=== PATIENT | male | born 1975 | race Caucasian/White ===

== ENCOUNTER 2018-01-03 19:26 | Emergency (ER) | payer SELFPAY ==
[~2018-01-03] VITALS: Ht 175.3 cm; Wt 110.9 kg
[2018-01-03 19:38] VITALS: TEMP 36.9; Ht 175.3 cm; Wt 110.9 kg
[2018-01-03 20:16] LABS: BASO % 0.4 %; BASO ABS # 0.03 K/uL (0-0.2); EOS % 1.9 %; EOS ABS # 0.15 K/uL (0-0.5); HEMATOCRIT 44.5 % (42-52); HEMOGLOBIN 15.1 g/dL (14.0-18.0); IG# 0.04 K/uL (0.00-0.02); LYMPH % 29.7 %; LYMPH ABS # 2.35 K/uL (1.2-3.4); MEAN CELL VOLUME 82.4 fL (80-100); MEAN CORPUSCULAR HGB CONC 33.9 g/dl (32-36); MEAN PLATELET VOLUME 10.5 fL (7.4-10.4); MONO % 5.7 %; MONO ABS # 0.45 K/uL (0.11-0.59); NEUT % 61.8 %; NEUT ABS # 4.88 K/uL (1.4-6.5); PLATELET COUNT 226 K/uL (130-400); RED CELL DISTRIBUTION WIDTH CV 13.6 % (11.5-14.5); RED CELL DISTRIBUTION WIDTH SD 40.6 fL (36.4-46.3)
[2018-01-03 20:42] LABS: CREATININE 1.12 mg/dl (0.60-1.40)
[2018-01-03 20:55] LABS: INR 0.9 (0.9-1.1); PTT PATIENT 26.6 SECONDS (21.0-31.0)
--- NOTE | 2018-01-03 21:01 | DIAGNOSTIC IMAGING REPORT ---
ULTRASOUND RIGHT LOWER EXTREMITY VENOUS CLINICAL HISTORY: Right leg pain. COMPARISON STUDY: No priors. TECHNIQUE: Real-time, grayscale, and color Doppler sonography of the deep veins of the right lower extremity was performed from the inguinal crease to the calf. Compression and augmentation were utilized. FINDINGS: There is no sonographic evidence of deep venous thrombosis identified in the right lower extremity. The common femoral, superficial femoral, and popliteal veins are patent and normally compressible. The greater saphenous vein and the profunda femoris vein at the junction with the common femoral vein are clear. The visualized calf veins are patent. IMPRESSION: There is no sonographic evidence of deep venous thrombosis identified in the right lower extremity. Electronically signed by: Keanu Benavides M.D. 01/03/2018 9:00 PM Dictated Date/Time: 01/03/2018 8:59 PM
--- NOTE | 2018-01-03 21:25 | EMERGENCY ROOM VISIT NOTE ---
History Report prepared by Greer: Seema Ricks Under the Supervision of: Dr. Nicola Barahona D.O. First contact with patient: 19:43 Chief Complaint: SWELLING TO EXTREMITY Stated Complaint: LEG IS SWOLLEN History of Present Illness The patient is a 42 year old male who presents to the Emergency Room with complaints of worsening right leg swelling starting a few days ago. He first noticed pressure in his leg several days ago. The pressure worsens with bending his leg. Today, the swelling noticeably increased. He has some thigh pain on the back side. He denies any calf pain or knee pain. He denies any trauma. He has not found any insect bites. 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 Source of History: patient Onset: few days ago Position: leg (right) Quality: pressure, other (swelling) Timing: worsening Note: Pt reports thigh pain. Pt denies knee pain, calf pain. Review of Systems See HPI for pertinent positives & negatives. A total of 10 systems reviewed and were otherwise negative. Family History Cancer Heart disease Hypertension Kidney disease Kidney stones Lung disease Social History Smoking Status: Current Some Day Smoker Marital Status: Housing Status: lives with family Occupation Status: employed Current/Historical Medications No Active Prescriptions or Reported Meds Allergies Coded Allergies: No Known Allergies (Unverified , 01/03/18) Physical Exam Vital Signs Date Time Temp Pulse Resp B/P (MAP) Pulse Ox O2 Delivery O2 Flow Rate FiO2 01/03/18 19:38 36.9 93 18 146/76 97 Room Air Physical Exam CONSTITUTIONAL/VITAL SIGNS: Reviewed / noted above. GENERAL: Non-toxic in appearance. INTEGUMENTARY: Warm, dry, and [place]. HEAD: Normocephalic. EYES: without scleral icterus or trauma. ENT/OROPHARYNX: clear and moist. LYMPHADENOPATHY/NECK: Is supple without lymphadenopathy or meningismus. RESPIRATORY: Lungs clear and equal. CARDIOVASCULAR: Regular rate and rhythm. GI/ABDOMEN: Soft and nontender. No organomegaly or pulsatile mass. No rebound or guarding. Normal bowel sounds. EXTREMITIES: Warm and well perfused. Right leg is more tense and swollen compared to left leg, distal pulses are intact. BACK: No CVA tenderness. NEUROLOGICAL: Intact without focal deficits. PSYCHIATRIC: normal affect. MUSCULOSKELETAL: Normally developed with good muscle tone. Medical Decision & Procedures ER Provider Diagnostic Interpretation: Radiology results as stated below per my review and radiologist interpretation: ULTRASOUND RIGHT LOWER EXTREMITY VENOUS CLINICAL HISTORY: Right leg pain. COMPARISON STUDY: No priors. TECHNIQUE: Real-time, grayscale, and color Doppler sonography of the deep veins of the right lower extremity was performed from the inguinal crease to the calf. Compression and augmentation were utilized. FINDINGS: There is no sonographic evidence of deep venous thrombosis identified in the right lower extremity. The common femoral, superficial femoral, and popliteal veins are patent and normally compressible. The greater saphenous vein and the profunda femoris vein at the junction with the common femoral vein are clear. The visualized calf veins are patent. IMPRESSION: There is no sonographic evidence of deep venous thrombosis identified in the right lower extremity. Electronically signed by: Keanu Benavides M.D. 01/03/2018 9:00 PM Dictated Date/Time: 01/03/2018 8:59 PM Laboratory Results 01/03/18 20:00 Red Blood Count 5.40, Mean Corpuscular Volume 82.4, Mean Corpuscular Hemoglobin 28.0, Mean Corpuscular Hemoglobin Concent 33.9, Mean Platelet Volume 10.5, Neutrophils (%) (Auto) 61.8, Lymphocytes (%) (Auto) 29.7, Monocytes (%) (Auto) 5.7, Eosinophils (%) (Auto) 1.9, Basophils (%) (Auto) 0.4, Neutrophils # (Auto) 4.88, Lymphocytes # (Auto) 2.35, Monocytes # (Auto) 0.45, Eosinophils # (Auto) 0.15, Basophils # (Auto) 0.03 01/03/18 20:00 Test 01/03/18 20:00 White Blood Count 7.90 K/uL (4.8-10.8) Red Blood Count 5.40 M/uL (4.7-6.1) Hemoglobin 15.1 g/dL (14.0-18.0) Hematocrit 44.5 % (42-52) Mean Corpuscular Volume 82.4 fL (80-100) Mean Corpuscular Hemoglobin 28.0 pg (25-34) Mean Corpuscular Hemoglobin Concent 33.9 g/dl (32-36) Platelet Count 226 K/uL (130-400) Mean Platelet Volume 10.5 fL (7.4-10.4) Neutrophils (%) (Auto) 61.8 % Lymphocytes (%) (Auto) 29.7 % Monocytes (%) (Auto) 5.7 % Eosinophils (%) (Auto) 1.9 % Basophils (%) (Auto) 0.4 % Neutrophils # (Auto) 4.88 K/uL (1.4-6.5) Lymphocytes # (Auto) 2.35 K/uL (1.2-3.4) Monocytes # (Auto) 0.45 K/uL (0.11-0.59) Eosinophils # (Auto) 0.15 K/uL (0-0.5) Basophils # (Auto) 0.03 K/uL (0-0.2) RDW Standard Deviation 40.6 fL (36.4-46.3) RDW Coefficient of Variation 13.6 % (11.5-14.5) Immature Granulocyte % (Auto) 0.5 % Immature Granulocyte # (Auto) 0.04 K/uL (0.00-0.02) Prothrombin Time 9.4 SECONDS (9.0-12.0) Prothromb Time International Ratio 0.9 (0.9-1.1) Activated Partial Thromboplast Time 26.6 SECONDS (21.0-31.0) Partial Thromboplastin Ratio 1.0 D-Dimer 250 ug/L FEU (0-500) Anion Gap 8.0 mmol/L (3-11) Est Creatinine Clear Calc Drug Dose 104.4 ml/min Estimated GFR () 92.7 Estimated GFR (Non- 80.0 BUN/Creatinine Ratio 15.6 (10-20) Calcium Level 9.0 mg/dl (8.5-10.1) Laboratory results as stated above per my review. ED Course 1945: Previous medical records were reviewed. The patient was evaluated in room B11B. A complete history and physical examination was performed. 2125: On reevaluation, the patient is resting comfortably. I discussed the results and findings with the patient. He verbalized agreement of the treatment plan. He was discharged home. Medical Decision Differential diagnosis: Etiologies such as DVT, musculoskeletal, infection, joint effusion, trauma, lymphedema, idiopathic, CHF, as well as others were entertained. This is a 42-year-old male who presents to the ED with a chief complaint of a sensation of fullness in the right leg. 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 His symptoms started over the past couple of days. He denies any specific trauma. No rashes or fever. His exam does reveal some fullness in the right leg and some tenseness compared to the opposite leg. Ultrasound did not show DVT. Blood work including CBC and PRP was normal. D-dimer was negative. There is no obvious infection in the leg. The patient was told the results of the test. He is felt to be stable for discharge and outpatient follow-up. Medication Reconcilliation Current Medication List: was personally reviewed by me Blood Pressure Screening Patient's blood pressure: Elevated blood pressure Blood pressure disposition: Elevated BP felt to be situational Impression Primary Impression: Swelling of right extremity Scribe Attestation The scribe's documentation has been prepared under my direction and personally reviewed by me in its entirety. I confirm that the note above accurately reflects all work, treatment, procedures, and medical decision making performed by me. Departure Information Dispostion Home / Self-Care Prescriptions No Active Prescriptions or Reported Meds Referrals Iwona Malone DO (PCP) Patient Instructions My [facility] Additional Instructions The ultrasound today did not show DVT/blood clot. Your white blood cell count, red blood cell count, kidney function and electrolytes today are all normal. Elevate the leg to help with the edema. Follow-up with your doctor for further care and evaluation in 1-2 days. Return to the emergency department for worsening or new symptoms or any concerns. You have been examined and treated today on an emergency basis only. This is not a substitute for, or an effort to provide, complete comprehensive medical care. It is impossible to recognize and treat all injuries or illnesses in a single emergency department visit. It is therefore important that you follow up closely with your doctor. Call as soon as possible for an appointment.
[2018-01-03 21:42] VITALS: BP 130/84; PULSE 88; O2SAT 98
== END 2018-01-03 21:43 | disposition home or self-care (01) ==
LOC: C.EDB 19:27
DX: M79.89 Other specified soft tissue disorders (principal); M79.605 Pain in left leg; Z72.0 Tobacco use